=== PATIENT | male | born 1955 | race Caucasian/White ===

== ENCOUNTER → 2019-03-21 | Outpatient (CLI) | payer MEDICARE, OTHER ==
--- NOTE | 2019-03-21 16:14 | RAD ---
EXAM DESCRIPTION: Pelvis CLINICAL HISTORY: HIP PAIN COMPARISON: None. TECHNIQUE: AP pelvis FINDINGS: A presumed accessory ossicle is observed adjacent to the right hip. No fracturing is detected. Mild degenerative changes are seen in the pubic symphysis. Mild degenerative changes are also observed in the lower lumbar spine. No fracturing is detected. IMPRESSION: No fracturing is detected. Electronically signed by: Rommel Calderon MD 03/21/2019 4:12 PM [facility]
--- NOTE | 2019-03-21 16:15 | RAD ---
EXAM DESCRIPTION: Knee,Left Complete CLINICAL HISTORY: KNEE PAIN COMPARISON: None. TECHNIQUE: 4 views left FINDINGS: Loss of medial joint space is observed. Mild lateral tibial osteophyte formation is observed. No fracture is seen. Patellofemoral joint arthritis is observed. A small joint effusion is seen. 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 Electronically signed by: Rommel Calderon MD 03/21/2019 4:13 PM [facility]
--- NOTE | 2019-03-21 16:16 | RAD ---
EXAM DESCRIPTION: Knee,Right Complete CLINICAL HISTORY: KNEE PAIN COMPARISON: None. TECHNIQUE: 4 views right FINDINGS: Loss of medial joint space is observed. Lateral femoral and tibial osteophyte formation is observed. No fracture is detected. Patellofemoral joint arthritis is seen. IMPRESSION: Degenerative changes are observed most pronounced in the medial joint compartment. Electronically signed by: Rommel Calderon MD 03/21/2019 4:14 PM [facility]
== END ==
LOC: RAD 09:45
PROVIDERS: ATTEND Orthopaedic Surgery
DX: M17.11 Unilateral primary osteoarthritis, right knee (principal); M17.12 Unilateral primary osteoarthritis, left knee; M25.551 Pain in right hip; M25.552 Pain in left hip

== ENCOUNTER 2020-06-07 05:19 | Inpatient (IN) | payer MEDICARE, OTHER ==
--- NOTE | 2020-06-07 05:46 | ED.PDOC ---
History of Present Illness - General Source: patient Exam Limitations: no limitations - History of Present Illness Initial Comments: The patient is a 65-year-old male presented emergency room secondary to shortness of breath it has been progressive along with a cough for the last 2 weeks. He has had something of a runny nose and a mild sore throat. No syncope. No chest pain. No history of any heart, lung or significant kidney problems. He does have a history of some hypertension and hypertriglyceridemia. No syncope. Cough is minimally productive. Timing/Duration: other - 2 weeks Severity: moderate Improving Factors: nothing Worsening Factors: nothing Associated Symptoms: cough, fever/chills, loss of appetite, malaise, other - Nausea but no vomiting <Raheem Fleming - Last Filed: 06/07/20 06:49> <Noel Baxter - Last Filed: 06/07/20 08:12> - General Time Seen by Provider: 06/07/20 05:25 - History of Present Illness Allergies/Adverse Reactions: Allergies NO KNOWN ALLERGY Allergy (Verified 06/07/20 06:49) Review of Systems - Review of Systems Constitutional: States: fever, malaise EENTM: States: nose congestion, throat pain - Very mild Respiratory: States: cough, short of breath Cardiology: States: no symptoms reported Gastrointestinal/Abdominal: States: nausea Genitourinary: States: no symptoms reported Musculoskeletal: States: other - Mild body aches earlier on Skin: States: no symptoms reported Neurological: States: no symptoms reported Endocrine: States: no symptoms reported All other Systems: No Change from Baseline <Raheem Fleming - Last Filed: 06/07/20 06:49> Family Medical History - Family History Mother Family History: Unknown <Raheem Fleming - Last Filed: 06/07/20 06:49> Physical Exam - Physical Exam General Appearance: Alert, Other - Obviously some increased work of breathing Eye Exam: bilateral normal Ears, Nose, Throat: hearing grossly normal, normal pharynx, nasal congestion Neck: full range of motion, supple Respiratory: accessory muscle use - Moderate, rales - Primarily at bases, rhonchi Cardiovascular/Chest: normal peripheral pulses, no edema, other - Regular rate Peripheral Pulses: radial,right: 2+, radial,left: 2+ Gastrointestinal/Abdominal: non tender - Mild epigastric discomfort, soft Rectal Exam: deferred Back Exam: no vertebral tenderness Extremity: no calf tenderness, normal capillary refill 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 Normal axis. Normal R wave progression. Borderline high voltage. Normal QT interval. No ST segment or T wave changes indicative of acute ischemia. cxr cw multifocal pneumonia <Raheem Fleming - Last Filed: 06/07/20 06:49> - Progress Progress: 06/07/20 08:09 Pt presents to ED with 2 week h/o cough and congestion with worsening of symptoms past 2 days. On RA, O2 sat is 87% in ED and improves with supplemental O2. Febrile in ED. labs and CXR showing covid pneumonia. Will plan to admit for further treatment and evaluation. D/W hospitalist, Bladimir Baptiste. Will admit. Recommends Remdesivir, Decadron, Rocephin, Azitrho. - Results/Orders Results/Orders: 06/07/20 05:45 EKG STAT 06/07/20 06:10 BLOOD CULTURE Stat 06/07/20 08:07 Azithromycin IV [Zithromax IV] 500 mg Sodium Chloride 0.9% 250Ml [NS 250ml] 250 ml IVPB ONCE Remdesivir 200 mg Sodium Chloride 0.9% 250Ml [NS 250ml] 250 ml IVPB ONCE cefTRIAXone SODIUM [Rocephin] 1 gm Sodium Chl 0.9% 50Ml Min-Bag+ [NS 50ml MINI-BAG+] 50 ml IVPB ONCE Laboratory Results - last 24 hr 06/07/20 06/07/20 06/07/20 06:05 06:05 06:05 WBC 10.6 RBC 4.55 L Hgb 13.5 L Hct 39.3 L MCV 86.4 MCH 29.7 MCHC 34.4 RDW 13.0 Plt Count 307 MPV 7.2 L Absolute Neuts (auto) 9.50 H Absolute Lymphs (auto) 0.60 L Absolute Monos (auto) 0.40 Absolute Eos (auto) 0.00 Absolute Basos (auto) 0.00 Neutrophils % 89.8 H Lymphocytes % 6.1 L Monocytes % 3.6 Eosinophils % 0.1 L Basophils % 0.4 PT INR PTT (SP) Fibrinogen D-Dimer, Quantitative Sodium 136 Potassium 4.1 Chloride 104 Carbon Dioxide 22 Anion Gap 14.1 BUN 21 H Creatinine 1.29 BUN/Creatinine Ratio 16.3 Random Glucose 108 H Serum Osmolality 275.5 Lactic Acid Calcium 8.4 Magnesium Ferritin 258.1 Total Bilirubin 0.8 AST 33 ALT 21 Alkaline Phosphatase 56 LD Total Creatine Kinase 93 CK-MB (CK-2) 1.4 CK-MB (CK-2) % Not Reportable Troponin I 0.02 C-Reactive Protein B-Natriuretic Peptide 407.0 H* Serum Total Protein 6.5 Albumin 3.3 Globulin 3.2 Albumin/Globulin Ratio 1.0 L Amylase 43 Lipase TSH 06/07/20 06/07/20 06/07/20 06:05 06:05 06:05 WBC RBC Hgb Hct MCV MCH MCHC RDW Plt Count MPV Absolute Neuts (auto) Absolute Lymphs (auto) Absolute Monos (auto) Absolute Eos (auto) Absolute Basos (auto) Neutrophils % Lymphocytes % Monocytes % Eosinophils % Basophils % PT 10.7 INR 1.08 PTT (SP) 30.1 Fibrinogen 518 H D-Dimer, Quantitative 902.0 H* Sodium Potassium Chloride Carbon Dioxide Anion Gap BUN Creatinine BUN/Creatinine Ratio Random Glucose Serum Osmolality Lactic Acid 1.2 Calcium Magnesium 1.7 L Ferritin Total Bilirubin AST ALT Alkaline Phosphatase LD Total 241 H Creatine Kinase CK-MB (CK-2) CK-MB (CK-2) % Troponin I C-Reactive Protein 23.2 H* B-Natriuretic Peptide Serum Total Protein Albumin Globulin Albumin/Globulin Ratio Amylase Lipase 31 TSH 0.66 <Noel Baxter - Last Filed: 06/07/20 08:12> Departure <Raheem Fleming - Last Filed: 06/07/20 06:49> - Departure Time of Disposition: 08:12 <Noel Baxter - Last Filed: 06/07/20 08:12> - Departure Clinical Impression: Pneumonia due to COVID-19 virus, Hypoxia, Essential hypertension Disposition: Admit Patient Condition: Poor Referrals: LINDA RAMIREZ IV, GRAIN ELEVATOR CLERK [Primary Care Provider] - 1-2 Weeks Decision To Admit - Decistion To Admit Decision to Admit Date: 06/07/20 Decision to Admit Time: 08:11 <Noel Baxter - Last Filed: 06/07/20 08:12>
--- NOTE | 2020-06-07 06:40 | RAD ---
PROCEDURE: XR CHEST 1 VIEW HISTORY: cough, sob, hypoxia COMPARISON: None FINDINGS: The heart is enlarged. Patchy airspace disease present throughout the left lung and in the mid right lung. No evidence of overt pulmonary edema. No pleural effusion or pneumothorax. IMPRESSION: Patchy airspace disease in both lungs is concerning for multifocal pneumonia/COVID. Continued radiographic follow-up recommended to ensure clearance. Electronically signed by: Robert Guthrie MD 06/07/2020 6:39 AM FLOW TRADER
[2020-06-07] MEDS ORDERED: ACETAMINOPHEN 500 MG TAB PO ONE (06:55)
[2020-06-07] MEDS ORDERED: DEXAMETHASONE INJ 10 MG/ML VIAL IV ONE (08:07)
[2020-06-07] MEDS ORDERED: REMDESIVIR 200 MG in SODIUM CHLORIDE 0.9% 250ML 250 ML IVPB ONE (08:07)
[2020-06-07] MEDS ORDERED: cefTRIAXone SODIUM 1 GM in SODIUM CHL 0.9% 50ML MIN-BAG+ 50 ML IVPB ONE (08:07)
[2020-06-07] MEDS ORDERED: AZITHROMYCIN IV 500 MG in SODIUM CHLORIDE 0.9% 250ML 250 ML IVPB ONE (08:07)
--- NOTE | 2020-06-07 08:33 | HP ---
SUPERVISING PHYSICIAN: Joel Hedrick MD CHIEF COMPLAINT: Shortness of breath. HISTORY OF PRESENT ILLNESS: Mr. Stallworth is a 65 year-old male patient who presented to the Emergency Room today complain of shortness of breath that had progressively worsened over the last 2 weeks. His medication history is significant for hypertension. He has had a minimally productive cough. Vital signs initially on presentation at room air showed oxygen saturation of 87% and running a low grade fever of 100.3. Respiratory panel showed he was positive for Covid, negative for influenza and all other bacterial and viral targets. White count was within normal limits. He had a slight left shift. His chest x- ray showed some patchy airspace disease in both lungs significant for multifocal pneumonia consistent with Covid. Given his positive for Covid with hypoxia on room air, he is going to be admitted for initiation of treatment for Covid pneumonitis. He was admitted in stable condition. PAST MEDICAL HISTORY: 1. Hypertension. 2. Hyperlipidemia. 3. Gastroesophageal reflux disease. PAST SURGICAL HISTORY: 1. Left total knee arthroplasty. CURRENT MEDICATIONS: 1. Prilosec 20 mg daily. 2. Celebrex 200 mg daily. 3. Norvasc 10 mg daily. 4. TriCor 160 mg daily. ALLERGIES: No known drug allergies. FAMILY HISTORY: Noncontributory to current admission. SOCIAL HISTORY: The patient lives in [place]. He currently works in the [employer] industry. He has no history of smoking and does not drink alcohol or use illicit drugs. REVIEW OF SYSTEMS: CONSTITUTIONAL: Positive for general malaise, fevers, no unintentional weight loss. HEENT: Positive for nasal congestion, mild sore throat, no earaches, headaches or vision changes. CHEST: Positive for increasing shortness of breath and cough. HEART: Denies chest pain, palpitations, tachycardia or syncopal episodes. ABDOMEN: Denies nausea, vomiting, diarrhea or constipation, abdominal pain. GENITOURINARY: Denies dysuria, hematuria or polyuria. MUSCULOSKELETAL: No joint swelling, he does have some generalized arthralgias. SKIN: No reported lesions, rashes, moles or unexplained changes. NEUROLOGIC: No reported ataxia, seizures, vision changes or headaches, migraines. . HEMATOLOGICAL: Denies unexplained bleeding, easy bruising or transfusion reactions. PHYSICAL EXAMINATION: VITAL SIGNS: In the Emergency Room on room air, oxygen saturation of 87%. After breathing treatment and 4 liter nasal cannula, he improved to 93%. He was showing to be afebrile at 100.3. Blood pressure 138/77, heart rate 98, respirations 18 to 22. GENERAL: The patient does not look to be in any acute distress. He is showing to be mildly tachypneic but no obvious respiratory distress. . HEENT: Tympanic membranes are clear bilaterally. Oropharynx is pink, moist, without any lesions. He was showing some mild nasal congestion. NECK: Supple, non-tender, full range of motion, no jugular venous distention. CHEST: Lung sounds were a little diminished toward the bases with just some very faint rhonchi heard throughout, more so on the left than the right. CARDIOVASCULAR: Regular rate and rhythm without appreciable murmurs, rubs, or gallops. ABDOMEN: Soft, non-tender, positive bowel sounds. EXTREMITIES: Without cyanosis, clubbing, or edema. RECTAL: Exam deferred. BACK: Without vertebral or CVA tenderness. NEUROLOGIC: Cranial nerves II through XII are grossly intact. He is alert and oriented x3. SKIN: Warm, pink and dry. LABORATORY: White count 10,600, hemoglobin 13.5, hematocrit 39.3, platelet count 307,000. Differential does show a left shift. Coagulation studies showed normal PT/PTT, fibrinogen at 518. D-dimer 902. Chemistries showing normal electrolytes. Creatinine 1.29, lactic acid level normal at 1.2. Calcium 8.4, magnesium a little low at 1.7. Liver functions within normal limits. LDH 241, troponin 0.02. C-reactive protein elevated at 23.2. BNP slightly elevated at 407. Lipase and amylase normal. TSH normal at 0.66. RADIOLOGY: Chest x-ray per radiology interpretation shows patchy airspace disease in both lungs concerning for multifocal pneumonia/Covid. Please see that report for details. ASSESSMENT: 1. Covid pneumonitis with room air hypoxia. 2. Hypertension. 3. Hypercholesterolemia. PLAN: Mr. Stallworth is going to be admitted for initiation of treatment for Covid pneumonitis. He was started on Remdesivir, Rocephin, azithromycin, Decadron. He will be on Protonix for gastric protection. We will work to try to titrate his oxygen down as needed to keep his oxygen saturation above 94%. He does have a slightly elevated BNP. We will go ahead and do an echocardiogram. He does not have a former history of congestive heart failure but given his elevated BNP and shortness of breath, he warrants at least an echocardiogram. We will continue to provide aggressive pulmonary hygiene with albuterol treatments as needed. I would anticipate his length of stay to be at least 2-3 days. Until we can transition patient to outpatient management, we will continue to monitor and treat as needed. #[id number] [facility]
[2020-06-07] MEDS ORDERED: ALBUTEROL INHALER 64 PUFF/8GM INH PRN (10:02)
[2020-06-07] MEDS ORDERED: ACETAMINOPHEN 325 MG TAB PO PRN (10:05)
[2020-06-07] MEDS ORDERED: ONDANSETRON INJ 4 MG/2 ML VIAL IV PRN (10:05)
[2020-06-07] MEDS ORDERED: SODIUM CHLORIDE 0.9% (FLUSH) 10 ML SYG IV PRN (10:05)
[2020-06-07] MEDS: ALBUTEROL INHALER 64 PUFF/8GM INH SCH ×3 (13:00→20:43)
[2020-06-07] MEDS: IV SET AND CAP CHANGE INJ INJ SCH (13:15)
[2020-06-07] MEDS: PROMETHAZINE W/CODEINE SYR 6.25 MG/10 MG/5 ML UD PO PRN ×2 (18:10→23:11)
[2020-06-07] MEDS: guaiFENesin ER TAB 600 MG TAB PO SCH (20:31)
[2020-06-07] MEDS: ENOXAPARIN SODIUM 40 MG/0.4 ML SYG SUBCU SCH (20:31)
--- NOTE | 2020-06-08 06:24 | RAD ---
PROCEDURE:XR CHEST 1 VIEW HISTORY:COVID COMPARISON: 07/05/2020 FINDINGS: The heart appears unremarkable. There are stable bilateral pulmonary infiltrates. Is no evidence for pneumothorax. There are no acute bony or soft tissue abnormalities. IMPRESSION: Stable infiltrates Electronically signed by: Jason Benedict MD 06/08/2020 6:22 AM [facility]
[2020-06-08] MEDS ORDERED: PANTOPRAZOLE SODIUM IV 40 MG VIAL IV SCH (06:30)
[2020-06-08] MEDS ORDERED: amLODIPine BESYLATE 5 MG TAB ONE (07:21)
[2020-06-08] MEDS ORDERED: SODIUM CHL 0.9% 50ML MIN-BAG+ 50 ML IVPB ONE (07:22)
[2020-06-08] MEDS ORDERED: SODIUM CHLORIDE 0.9% 250ML 250 ML ONE (07:22)
[2020-06-08] MEDS ORDERED: AZITHROMYCIN IV 500 MG VIAL IVPB ONE (07:22)
[2020-06-08] MEDS ORDERED: cefTRIAXone SODIUM 1 GM VIAL ONE (07:22)
[2020-06-08] MEDS: ALBUTEROL INHALER 64 PUFF/8GM INH SCH ×4 (08:30→20:55)
[2020-06-08] MEDS: cefTRIAXone SODIUM 1 GM in SODIUM CHL 0.9% 50ML MIN-BAG+ 50 ML IVPB SCH (09:07)
[2020-06-08] MEDS: amLODIPine BESYLATE 5 MG TAB PO SCH (09:07)
[2020-06-08] MEDS: guaiFENesin ER TAB 600 MG TAB PO SCH ×2 (09:07→19:52)
[2020-06-08] MEDS: BIFIDOBACTERIUM INFANTIS 4 MG CAP PO SCH (09:07)
[2020-06-08] MEDS: AZITHROMYCIN IV 500 MG in SODIUM CHLORIDE 0.9% 250ML 250 ML IVPB SCH (09:07)
[2020-06-08] MEDS: DEXAMETHASONE INJ 10 MG/ML VIAL IV SCH ×2 (09:09→19:52)
--- NOTE | 2020-06-08 09:17 | PN ---
SUPERVISING PHYSICIAN: Davis Branch MD DATE: 06/08/20 SUBJECTIVE: The patient states he does not really feel short of breath. He is able to move around the room with no significant shortness of breath, however, overnight he has had increased O2 requirements and is now on 9 liters. O2 saturations are around 94% on the 9 liters at this time. OBJECTIVE: VITAL SIGNS: Blood pressure 116/70, heart rate 68, respiratory rate 18, temperature 97.8, oxygen saturation 94% on 9 liters via nasal cannula. GENERAL: Mr. Stallworth is a 65-year-old male patient in no active distress. NEUROLOGIC: The patient is alert. LUNGS: Diminished. CARDIOVASCULAR: Regular rate and rhythm. Normal S1, S2. ABDOMEN: Soft. Positive bowel sounds. EXTREMITIES: Lower extremities with no edema. Pulses 2+. Capillary refill is less than 2 seconds. LABORATORY: White count 9.2, hemoglobin 13.1, platelet count 325. D-dimer 529. Chemistry shows mildly elevated BUN at 27, creatinine 1.28. C-reactive protein is improved to 19.3 from 23.2. RADIOLOGY: Chest x-ray show no acute changes from yesterday. ASSESSMENT: 1. COVID pneumonitis. 2. Hypoxemic respiratory failure secondary to #1. 3. Hypertension. 4. Hypercholesterolemia. PLAN: We will continue the remdesivir and empiric antibiotics. Continue the scheduled bronchodilators. I am going to increase the Decadron to b.i.d. We will continue to try to taper off oxygen as tolerated. We will repeat labs and chest x-rays as needed. #[id number] [facility]
[2020-06-08] MEDS: REMDESIVIR 100 MG in SODIUM CHLORIDE 0.9% 250ML 250 ML IVPB SCH (11:40)
[2020-06-08] MEDS: ENOXAPARIN SODIUM 40 MG/0.4 ML SYG SUBCU SCH (19:52)
[2020-06-09] MEDS ORDERED: PANTOPRAZOLE SODIUM TAB 40 MG PO ONE (03:20)
[2020-06-09] MEDS: PANTOPRAZOLE SODIUM TAB 40 MG PO SCH (05:36)
--- NOTE | 2020-06-09 07:23 | RAD ---
EXAM: Chest Radiography COMPARISON: Chest radiograph June 2020 INDICATION: MAIN COVID FINDINGS: A single AP view of the chest demonstrates a normal cardiomediastinal silhouette. No pneumothorax or pleural effusion. Mild progression of consolidations throughout the left lung, also now progressing mildly in the right lung. Osseous structures are intact. IMPRESSION: Progressive multifocal pneumonia. Electronically signed by: John Booker MD 06/09/2020 7:21 AM BOOMSWING OPERATOR
[2020-06-09] MEDS: ALBUTEROL INHALER 64 PUFF/8GM INH SCH ×4 (08:10→20:43)
[2020-06-09] MEDS: AZITHROMYCIN IV 500 MG in SODIUM CHLORIDE 0.9% 250ML 250 ML IVPB SCH (08:54)
[2020-06-09] MEDS: DEXAMETHASONE INJ 10 MG/ML VIAL IV SCH ×2 (08:54→21:26)
[2020-06-09] MEDS: POLYETHYLENE GLYCOL 3350 17 GM PCKT PO SCH (08:54)
[2020-06-09] MEDS: guaiFENesin ER TAB 600 MG TAB PO SCH ×2 (08:54→21:26)
[2020-06-09] MEDS: amLODIPine BESYLATE 5 MG TAB PO SCH (08:55)
[2020-06-09] MEDS: BIFIDOBACTERIUM INFANTIS 4 MG CAP PO SCH (08:55)
[2020-06-09] MEDS: cefTRIAXone SODIUM 1 GM in SODIUM CHL 0.9% 50ML MIN-BAG+ 50 ML IVPB SCH (08:55)
--- NOTE | 2020-06-09 11:05 | PN ---
SUPERVISING PHYSICIAN: Davis Branch MD DATE: 06/09/20 SUBJECTIVE: The patient is feeling okay with no shortness of breath. Even with moving around, he is not really getting too short of breath. He was just dropped to 5 liters from 7 liters of oxygen this morning. OBJECTIVE: VITAL SIGNS: Blood pressure 126/66, heart rate 67, respiratory rate 20, temperature 97.8, oxygen saturation 97% on 5 liters via nasal cannula. GENERAL: Mr. Stallworth is a 65-year-old male patient in no active distress. NEUROLOGIC: The patient is alert. LUNGS: Diminished. CARDIOVASCULAR: Regular rate and rhythm. Normal S1, S2. ABDOMEN: Soft. Positive bowel sounds. EXTREMITIES: Lower extremities with no edema. LABORATORY: White count 12.0, hemoglobin 12.5, platelet count 369. D-dimer down to 310. Chemistry shows mildly elevated BUN at 34, creatinine 1.17. C- reactive protein is down to 8.7 from 19.3. RADIOLOGY: Chest x-ray was done and continues to show bilateral patchy infiltrates consistent with COVID pneumonitis. ASSESSMENT: 1. Acute hypoxemic respiratory failure. 2. COVID pneumonitis. 3. Hypertension. 4. Hypercholesterolemia. PLAN: We will continue remdesivir and empiric antibiotics. We will continue the b.i.d. dexamethasone and wean if he continues to improve his oxygenation status. We will continue continue the bronchodilators and bronchial hygiene as well. We will repeat labs and chest x-rays as needed. #[id number] [facility]
[2020-06-09] MEDS: REMDESIVIR 100 MG in SODIUM CHLORIDE 0.9% 250ML 250 ML IVPB SCH (11:22)
[2020-06-09] MEDS: ENOXAPARIN SODIUM 40 MG/0.4 ML SYG SUBCU SCH (21:26)
[2020-06-10] MEDS: PANTOPRAZOLE SODIUM TAB 40 MG PO SCH (05:43)
--- NOTE | 2020-06-10 07:14 | RAD ---
EXAM: XR Chest, 1 View CLINICAL HISTORY: The patient is 65 years old and is Male; COVID pneumonia TECHNIQUE: Single upright portable view of the chest. COMPARISON: June 09, 2019 7:00 AM. FINDINGS: Lungs: Bilateral pulmonary opacities again noted, stable to slightly increased compared with the prior exam. Pleural space: Unremarkable. No pneumothorax. Heart: Cardiomediastinal silhouette is not significantly changed given the differences in technique. Mediastinum: See above. Bones/joints: The bones and joints are unchanged as visualized. Upper abdomen: No free air in the visualized upper abdomen. IMPRESSION: Bilateral pulmonary opacities again noted, stable to slightly increased compared with the prior exam. Electronically signed by: Sapna Hood MD 06/10/2020 7:12 AM PULP DRIER FIRER
[2020-06-10] MEDS: ALBUTEROL INHALER 64 PUFF/8GM INH SCH ×4 (08:00→19:00)
[2020-06-10] MEDS: AZITHROMYCIN IV 500 MG in SODIUM CHLORIDE 0.9% 250ML 250 ML IVPB SCH (09:13)
[2020-06-10] MEDS: DEXAMETHASONE INJ 10 MG/ML VIAL IV SCH ×2 (09:13→20:19)
[2020-06-10] MEDS: guaiFENesin ER TAB 600 MG TAB PO SCH ×2 (09:13→20:20)
[2020-06-10] MEDS: BIFIDOBACTERIUM INFANTIS 4 MG CAP PO SCH (09:13)
[2020-06-10] MEDS: amLODIPine BESYLATE 5 MG TAB PO SCH (09:13)
[2020-06-10] MEDS: IV SET AND CAP CHANGE INJ INJ SCH (09:14)
[2020-06-10] MEDS: cefTRIAXone SODIUM 1 GM in SODIUM CHL 0.9% 50ML MIN-BAG+ 50 ML IVPB SCH (09:14)
[2020-06-10] MEDS: POLYETHYLENE GLYCOL 3350 17 GM PCKT PO SCH (09:14)
[2020-06-10] MEDS: REMDESIVIR 100 MG in SODIUM CHLORIDE 0.9% 250ML 250 ML IVPB SCH (12:04)
--- NOTE | 2020-06-10 15:35 | PN ---
SUPERVISING PHYSICIAN: Davis Branch MD DATE: 06/10/20 SUBJECTIVE: The patient seems to be doing okay. He is not really complaining of any shortness of breath. He has actually just now got down to 4 liters on the nasal cannula and seem to be doing okay with that. He has no fevers, no nausea or vomiting or chest pain. OBJECTIVE: VITAL SIGNS: Temperature 97.5, pulse 68, blood pressure 163/75, respirations 18, saturation 94% on 4 liters nasal cannula. GENERAL: The patient is resting comfortably, no acute distress. CHEST: Lung sounds are diminished towards the bases, otherwise fairly clear. HEART: Regular rate and rhythm. ABDOMEN: Soft, nontender. Positive bowel sounds. EXTREMITIES: No edema. NEUROLOGIC: Alert and oriented times three. LABORATORY: White count down to 11,100, hemoglobin 13, hematocrit 38.6, platelet count 408,000. Differential shows a left shift. Coagulation studies show D-dimer to be normalized to 310 today. Chemistries show normal electrolytes. Creatinine 1.12, magnesium and calcium both normal. RADIOLOGY: Repeat chest x-ray, singe-view, this morning per radiologic interpretation shows bilateral pulmonary opacities again noted, stable to slightly increased compared to previous exam. ASSESSMENT: 1. Acute hypoxemic respiratory failure. 2. COVID pneumonitis. 3. Hypertension. 4. Hypercholesterolemia. PLAN: We will continue to cover with remdesivir and antibiotics. He does remain on Decadron. He is now down to 4 liters on the nasal cannula. If he can maintain this without any distress today and tomorrow, he should be able to discharge home. We will repeat labs tomorrow. We will do BMP, C-reactive protein. CBC seems to be stable. Chest x-ray as well is stable, therefore, we will hold off on repeat chest x-ray. Until the patient can transition to outpatient management, we will continue to monitor and treat as needed. #[id number] [facility]
[2020-06-10] MEDS: ENOXAPARIN SODIUM 40 MG/0.4 ML SYG SUBCU SCH (20:19)
[2020-06-11] MEDS: PANTOPRAZOLE SODIUM TAB 40 MG PO SCH (05:39)
[2020-06-11] MEDS: ALBUTEROL INHALER 64 PUFF/8GM INH SCH ×2 (08:15→11:45)
[2020-06-11] MEDS: guaiFENesin ER TAB 600 MG TAB PO SCH (10:04)
[2020-06-11] MEDS: amLODIPine BESYLATE 5 MG TAB PO SCH (10:04)
[2020-06-11] MEDS: BIFIDOBACTERIUM INFANTIS 4 MG CAP PO SCH (10:04)
[2020-06-11] MEDS: POLYETHYLENE GLYCOL 3350 17 GM PCKT PO SCH (10:04)
[2020-06-11] MEDS: DEXAMETHASONE INJ 10 MG/ML VIAL IV SCH (10:04)
[2020-06-11] MEDS: cefTRIAXone SODIUM 1 GM in SODIUM CHL 0.9% 50ML MIN-BAG+ 50 ML IVPB SCH (10:04)
[2020-06-11] MEDS: AZITHROMYCIN IV 500 MG in SODIUM CHLORIDE 0.9% 250ML 250 ML IVPB SCH (10:05)
[2020-06-11 10:57] VITALS: O2SAT 94
[2020-06-11] MEDS: REMDESIVIR 100 MG in SODIUM CHLORIDE 0.9% 250ML 250 ML IVPB SCH (12:31)
[2020-06-11 13:05] VITALS: BP 128/72; TEMP 98.2
--- NOTE | 2020-06-24 14:41 | DS ---
SUPERVISING PHYSICIAN: Davis Branch MD ADMISSION DIAGNOSIS: 1. COVID pneumonitis with room air hypoxia. 2. Hypertension. 3. Hypercholesterolemia. DISCHARGE DIAGNOSIS: 1. Acute hypoxemic respiratory failure. 2. COVID pneumonitis. 3. Hypertension. 4. Hypercholesterolemia. REASON FOR HOSPITALIZATION: Mr. Stallworth is a 65 year-old male patient who presented to the Emergency Room today complain of shortness of breath that had progressively worsened over the last 2 weeks. His medication history is significant for hypertension. He has had a minimally productive cough. Vital signs initially on presentation at room air showed oxygen saturation of 87% and running a low grade fever of 100.3. Respiratory panel showed he was positive for COVID, negative for influenza and all other bacterial and viral targets. White count was within normal limits. He had a slight left shift. His chest x- ray showed some patchy airspace disease in both lungs significant for multifocal pneumonia consistent with COVID. Given his positive for COVID with hypoxia on room air, he is going to be admitted for initiation of treatment for COVID pneumonitis. He was admitted in stable condition. LABORATORY: White count on discharge was 11,100, hemoglobin 13, hematocrit 38.6, platelet count 408,000. Differential showed a left shift. Coagulation studies showed D-dimer at 902 to normal at 310. Chemistries showed normal electrolytes. BUN 32, creatinine 1.09, calcium 8.1, magnesium 2.2. C-reactive protein had gone down from 23.2 to 2.4. TSH was normal at 0.66. Amylase and lipase were both normal. MICROBIOLOGY: Respiratory panel was positive for COVID, negative for influenza and all other respiratory and bacterial targets. Blood cultures were negative after 5 days. RADIOLOGY: Final chest x-ray on 06/10/20 showed bilateral pulmonary opacities, stable and slightly increased compared to previous exam on 06/09/20. Please see those reports for details. ECHOCARDIOGRAM: Mild left concentric ventricular hypertrophy, normal left ventricular size and function with estimated ejection fraction of 55%. That was done on 06/08/20. EKG: Sinus tachycardia at [address] or T-wave changes to indicate acute ischemia or acute coronary syndrome. HOSPITAL COURSE: Mr. Stallworth was admitted on 06/07/20 for treatment of COVID pneumonitis. He was started on remdesivir, Rocephin, azithromycin and Decadron. He was on Protonix for gastric protection. His O2 demands on admission showed saturation 87% on room air. On date of discharge, he was showing respirations 18, saturation 94% on 2 liter nasal cannula, blood pressure 128/72, afebrile at 98.7. Ambulation study prior to discharge showed 91% on room air and during exercise was down to 88%. With oxygen at 3 liters, 92%. It was felt he had improved clinically and oxygen was made available at home at discharge. Therefore, he was discharged to continue with outpatient management. PLAN: Mr. Stallworth was discharged on 06/11/[address] Jeny Garg on 06/18/20 at 9:30 AM. He was to resume his usual diet and increase activity as tolerated. He was to wear oxygen as needed as directed via nasal cannula. Medications prescribed on discharge included: 1. Align 4 mg daily while on antibiotics. 2. Decadron 6 mg daily for 5 days, no refills. 3. Guaifenesin 600 mg twice daily while on antibiotics. 4. Cefdinir 300 mg twice daily for 5 days, no refills. 5. Promethazine with codeine syrup 5 mL q.4h. as needed for cough, #120 mL, no refills. 6. Albuterol inhaler q.4h. as needed or scheduled for shortness of breath, #1 inhaler, no refills. CONDITION ON DISCHARGE: Stable and improved. DISPOSITION: The patient was discharged home. #[id number] [facility]
== END 2020-06-11 14:16 | disposition home or self-care (01) | DRG 177 ==
LOC: ER 05:19 → MS 08:31 → OBSVTOIN 08:31
PROVIDERS: ADMIT Nurse Practitioner Family; ATTEND Nurse Practitioner Family
PROC: XW033E5 Introduction of Remdesivir Anti-infective into Peripheral Vein, Percutaneous Approach, New Technology Group 5 (ICD-10-PCS; principal; 2020-06-07)
DX: U07.1 COVID-19 (principal); J12.82 Pneumonia due to coronavirus disease 2019; J96.01 Acute respiratory failure with hypoxia; I10 Essential (primary) hypertension; E78.00 Pure hypercholesterolemia, unspecified; Z79.1 Long term (current) use of non-steroidal anti-inflammatories (NSAID); Z79.899 Other long term (current) drug therapy; Z96.652 Presence of left artificial knee joint